=== PATIENT | male | born 1965 | race African-American/Black ===

== ENCOUNTER 2022-09-24 17:09 | Emergency (ER) | payer MEDICAID ==
[~2022-09-24] VITALS: Ht 167.6 cm; Wt 115.7 kg
[2022-09-24 17:18] VITALS: BP_SYST 120
--- NOTE | 2022-09-24 17:20 | NUR ---
Placed in room 02 . Placed on floating derrick operator, blood pressure machine and pulse oximeter. To gown for exam. Side rails up. Report given to NURY DICKSON.
--- NOTE | 2022-09-24 17:27 | NUR ---
ER DR. FIGUEROA EXAMINING PT
--- NOTE | 2022-09-24 17:58 | NUR ---
# 20 gauge angiocath placed to RAC. Use of asceptic technique. Opsite placed over site. Blood return noted. Blood for lab drawn from site. Flushed with 10 cc of normal saline. No evidence of infiltration noted. Patient tolerated well.
[2022-09-24] MEDS ORDERED: CARV6.2554 PO (18:09)
[2022-09-24] MEDS ORDERED: SENN8.6T19 PO (18:09)
[2022-09-24] MEDS ORDERED: INSU100V42 (18:09)
[2022-09-24] MEDS ORDERED: MULT-1089 PO (18:09)
[2022-09-24] MEDS ORDERED: AMIN30LI2 PO (18:09)
[2022-09-24] MEDS ORDERED: THIA50TA10 PO (18:09)
[2022-09-24] MEDS ORDERED: ASCO500T20 PO (18:09)
[2022-09-24] MEDS ORDERED: NITSL SL (18:09)
[2022-09-24] MEDS ORDERED: ROSU20TA2 PO (18:09)
[2022-09-24] MEDS ORDERED: ACET325T PO (18:09)
[2022-09-24] MEDS ORDERED: TEMO5CAP PO (18:09)
[2022-09-24] MEDS ORDERED: OXYIR5 PO (18:09)
[2022-09-24] MEDS ORDERED: GABA-529 PO (18:09)
--- NOTE | 2022-09-24 18:09 | NUR ---
Medication reconciliation completed with information provided by [facility]. Any prior medication reconciliation on file was reviewed and corrected.
[2022-09-24 18:22] LABS: BASOPHILS % (AUTO) 0.6 % (0.0-2.0); EOSINOPHILS # (AUTO) 0.1 K/uL (0.0-0.4); EOSINOPHILS % (AUTO) 0.8 % (0.0-4.0); HEMATOCRIT 30.6 % (36-48); HEMOGLOBIN 10.6 g/dL (12.0-16.0); LYMPHOCYTES # (AUTO) 1.2 K/uL (1.0-5.5); MEAN CORPUSCULAR HEMOGLOBIN 30 pg (27-31); MEAN CORPUSCULAR HGB CONC 35 % (32-36); MEAN CORPUSCULAR VOLUME 85 fL (79.0-98.0); MONOCYTES # (AUTO) 0.9 K/uL (0.0-1.0); MONOCYTES % (AUTO) 11.6 % (1.7-9.3); NEUTROPHILS # (AUTO) 5.8 K/uL (1.8-7.7); PLATELET COUNT (AUTO) 548 K/uL (130-430); RED CELL DISTRIBUTION WIDTH 14.6 % (9.0-15.0); WHITE BLOOD COUNT (AUTO) 8.1 K/uL (4.8-10.8)
[2022-09-24 18:46] LABS: INR 1.2 (0.8-1.2); PROTHROMBIN TIME 12.4 SECS (9.5-12.5)
[2022-09-24 18:58] LABS: ALBUMIN 1.8 g/dL (3.4-4.8); C-REACTIVE PROTEIN QUANT 27.4 mg/dL (0-0.5); CALCIUM 8.7 mg/dL (8.4-11.0); CREATININE 0.52 mg/dL (0.55-1.30); TOTAL BILIRUBIN 0.3 mg/dL (0.0-1.0)
--- NOTE | 2022-09-24 19:13 | NUR ---
ENDORSED PT TO NURY HERNANDEZ. ALL QUESTIONS AND CONCERNS ADDRESSED.
[2022-09-24] MEDS ORDERED: CLIN-142 PO (19:27)
--- NOTE | 2022-09-24 19:30 | NUR ---
First contact with the pt. AAO x4, VSS, RR even and unlaored. The pt is here for wound check. Safety measures in place.
[2022-09-24] MEDS ORDERED: CLINDAMYCIN HCL 150 MG CAPSULE PO ONE (19:45)
--- NOTE | 2022-09-24 20:12 | NUR ---
The pt is incontinent of stool. Wiped and cleaned. Pressure wound noted on R butt cheek. Per MD Barrett, wet to dry dressing applied. 4x4 placed over wet to dry. New adult brief placed. The pt is dcd. Awaiting EMS mushroom picker and transportation. AAO x4, VSS, RR even and unlabored.
--- NOTE | 2022-09-24 20:44 | NUR ---
Report called to NUR[facility] Estrella at [facility]. ETA EMS arrival at 2230
[2022-09-24] MEDS ORDERED: HYDROcodone/ACETAMIN 5-325 MG TAB (NORCO/ VICODIN) PO ONE (23:00)
[2022-09-24] MEDS ORDERED: CLINDAMYCIN HCL 150 MG CAPSULE ONE (23:03)
[2022-09-24 23:07] VITALS: BP_SYST 139
--- NOTE | 2022-09-24 23:45 | NUR ---
ETA for ambulance updated to 0115. The pt is notified. No s/sx of acue distress noted at this time.
== END 2022-09-25 04:09 | disposition home or self-care (01) ==
LOC: SED 17:09 → EDSEX 17:09 → EDBD 17:09 → SED 09-25 04:09
DX: L89.159 Pressure ulcer of sacral region, unspecified stage (principal); Z79.899 Other long term (current) drug therapy
CPT/HCPCS: 36415; 80053; 83605; 85025; 85610-TC; 85730-TC; 86140; 87040; 99283